=== PATIENT | male | born 2000 | race Two or more races ===

== ENCOUNTER 2024-06-16 12:47 | Emergency (ER) | payer BC ==
[2024-06-16 13:12] VITALS: TEMP 98
--- NOTE | 2024-06-16 13:37 | XR ---
EXAMINATION TYPE: XR chest 2V DATE OF EXAM: 06/16/2024 COMPARISON: No priors this location INDICATION: Recent pneumothorax last week TECHNIQUE: Frontal and lateral views of the chest are obtained. FINDINGS: The heart size is normal. The pulmonary vasculature is normal. There is a moderate-sized left pleural effusion. No current pneumothorax is evident.. IMPRESSION: 1. Moderate left pleural effusion. [facility], Workstation: [facility], 06/16/2024 1:35 PM
--- NOTE | 2024-06-16 14:15 | ED ---
General Adult HPI - General Chief complaint: Chest Pain Stated complaint: SOB Time Seen by Provider: 06/16/24 13:17 Source: patient, RN notes reviewed, old records reviewed Mode of arrival: ambulatory - History of Present Illness Initial comments: 23-year-old male with recent pneumothorax and secondary hemothorax presents for evaluation of left-sided lower chest pain. Patient had anterior chest wall chest tube placed 10 days ago patient reports a complication of hemothorax after chest tube placement and received a left lateral traditional chest tube at [facility] after transfer. He states this was subsequently removed 5 days ago he has been home since that time. He has had some discomfort but today he noted increased left lower chest discomfort. No fever. No dyspnea. - Related Data Home Medications Medication Instructions Recorded Confirmed Acetaminophen [Tylenol Extra 1,000 mg PO Q6H PRN 06/16/24 06/16/24 Strength] Sennosides-Docusate Sodium 1 tab PO BID PRN 06/16/24 06/16/24 [Senokot-S] oxyCODONE HCL [OxyIR] 5 mg PO Q6H PRN 06/16/24 06/16/24 Allergies Allergy/AdvReac Type Severity Reaction Status Date / Time eggplant AdvReac Unknown Verified 06/16/24 14:52 Review of Systems ROS Statement: Those systems with pertinent positive or pertinent negative responses have been documented in the HPI. ROS Other: All systems not noted in ROS Statement are negative. Past Medical History Additional Past Medical History / Comment(s): pneumothorax History of Any Multi-Drug Resistant Organisms: None Reported Past Surgical History: No Surgical Hx Reported Past Psychological History: No Psychological Hx Reported Smoking Status: Former smoker Past Alcohol Use History: None Reported Past Drug Use History: None Reported General Exam General appearance: alert, in no apparent distress Head exam: Present: atraumatic, normocephalic Eye exam: Present: normal appearance, PERRL ENT exam: Present: normal exam Neck exam: Present: normal inspection. Absent: tenderness, meningismus Respiratory exam: Present: chest wall tenderness, decreased breath sounds (Left lung base), other (Chest tube insertion sites are well-healed without signs of infection). Absent: respiratory distress, wheezes Cardiovascular Exam: Present: regular rate, normal rhythm GI/Abdominal exam: Present: soft. Absent: distended Extremities exam: Present: normal inspection, normal capillary refill Neurological exam: Present: alert, oriented X3, CN II-XII intact. Absent: motor sensory deficit Psychiatric exam: Present: normal affect, normal mood Course Vital Signs 06/16/24 06/16/24 06/16/24 13:05 15:24 16:28 Temperature 98 F Pulse Rate 99 98 90 Respiratory 20 22 20 Rate Blood Pressure 122/76 136/85 112/67 O2 Sat by Pulse 100 100 98 Oximetry 06/16/24 06/16/24 17:09 18:15 Temperature Pulse Rate 94 91 Respiratory 22 18 Rate Blood Pressure 112/67 115/73 O2 Sat by Pulse 97 98 Oximetry - Reevaluation(s) Reevaluation #1: 06/16/24 14:14 Attempts to obtain medical records and contact the cardiothoracic team at [facility] have been made. Reevaluation #2: 06/16/24 14:46 I discussed the case at length with Dr. Hanson, covering for thoracic surgery at [facility]. We were able to compare her x-rays from discharge to today. The left-sided effusion is significantly worse today than the time of discharge. Plan for transfer. The thoracic team requested CT imaging and chest tube prior to transfer. Procedures - Chest Tube Insertion Consent Obtained: written consent Side of Procedure: left Indication: Hemothorax Placed on monitor/pulse oximetry: Yes Site Prep: Chloroprep Local Anesthesia: Lidocaine 1%, With Epi Amount (mLs): 5 Insertion Site: 5th Intercostal Space, Midaxillary Scalpel: #11 Open into Pleural Space Using: Winsome Clamp Returns: Blood (1000 ml) Sutured in Place: Yes Type of Suture: Nylon Dressing Applied: Petroleum Gauze Attached to Suction: Yes Type of Suction: Pleuravac Repeat X-ray Results: Lung Inflated Patient Tolerated Procedure: well Medical Decision Making - Medical Decision Making Was pt. sent in by a medical professional or institution (, PA, HORSE RACE STARTER, urgent care, hospital, or fci...) When possible be specific @ -No Did you speak to anyone other than the patient for history (EMS, parent, family, police, friend...)? What history was obtained from this source @ -No Did you review nursing and triage notes (agree or disagree)? Why? @ -I reviewed and agree with nursing and triage notes Were old charts reviewed (outside hosp., previous admission, EMS record, old EKG, old radiological studies, urgent care reports/EKG's, fci records)? Report findings @ -No old charts were reviewed Differential Dyspnea: Coronary syndrome, arrhythmia, tamponade, asthma, COPD, pulmonary embolism, pneumonia, pneumothorax, pulmonary effusion, anaphylaxis, diabetic ketoacidosis, flailed chest, pulmonary contusion, diaphragmatic rupture, anemia, neuromuscular, this is not meant to be an all-inclusive list. EKG interpreted by me (3pts min.). @ -As above X-rays interpreted by me (1pt min.). @ -Chest x-ray showing a left-sided pleural effusion, no old for comparison. CT interpreted by me (1pt min.). @ -CT chest with contrast showing residual small pneumothorax and presumed hemothorax with appropriately placed chest tube. U/S interpreted by me (1pt. min.). @ -None done What testing was considered but not performed or refused? (CT, X-rays, U/S, labs)? Why? @ -None What meds were considered but not given or refused? Why? @ -None Did you discuss the management of the patient with other professionals (professionals i.e. , PA, HORSE RACE STARTER, lab, RT, psych nurse, renal social worker, development team lead, teacher, restoration officer, case finishing machine adjuster)? Give summary @Case discussed with the transfer team at [facility], accepting physician Dr. Tamez, Was smoking cessation discussed for >3mins.? @ -No Was critical care preformed (if so, how long)? @ yes, 35 min Were there social determinants of health that impacted care today? How? (Homelessness, low income, unemployed, alcoholism, drug addiction, tr ansportation, low edu. Level, literacy, decrease access to med. care, [facility], rehab)? @ -No Was there de-escalation of care discussed even if they declined (Discuss DNR or withdrawal of care, Hospice)? DNR status @ -No What co-morbidities impacted this encounter? (DM, HTN, Smoking, COPD, CAD, Cancer, CVA, ARF, Chemo, Hep., AIDS, mental health diagnosis, sleep apnea, morbid obesity)? @ -[Pneumohemothorax Was patient admitted / discharged? Hospital course, mention meds given and route, prescriptions, significant lab abnormalities, going to OR and other pertinent info. @ -23-year-old male with recent pneumothorax and secondary hemothorax presenting for reevaluation of left-sided chest pain. X-rays obtained, shows moderate effusion on the left with no definitive pneumothorax. I discussed case with Chuck Boswell who is familiar with the patient, thoracic team, Dr. Hanson, laboratory testing, CT imaging are pending. Thoracic team requests chest tube placement prior to transfer. I was able to place a left-sided 24 Spanish chest tube. Approximately 1 L of dark blood was returned. Patient tolerated the procedure well. Vitals remained stable. Patient will undergo CT imaging prior to transfer. He is being transferred as a direct admit to the thoracic service. Undiagnosed new problem with uncertain prognosis? @ -No Drug Therapy requiring intensive monitoring for toxicity (Heparin, Nitro, Insulin, Cardizem)? @ -No Were any procedures done? @ -yes, chest tube Diagnosis/symptom? @ -[Hemothorax, pneumothorax Acute, or Chronic, or Acute on Chronic? @ -Acute Uncomplicated (without systemic symptoms) or Complicated (systemic symptoms)? @ -[complicated Side effects of treatment? @ -No Exacerbation, Progression, or Severe Exacerbation? @ -No Poses a threat to life or bodily function? How? (Chest pain, [place], [place], pneumonia, PE, COPD, DKA, ARF, appy, cholecystitis, CVA, Diverticulitis, Homicidal, Suicidal, threat to staff... and all critical care pts) @Yes, pneumohemothorax - Lab Data Result diagrams: 06/16/24 14:41 06/16/24 14:41 Lab Results 06/16/24 06/16/24 06/16/24 Range/Units 14:41 14:41 14:41 WBC 13.1 H (3.8-10.6) k/uL RBC 3.40 L (4.30-5.90) m/uL Hgb 10.4 L (13.0-17.5) gm/dL Hct 32.5 L (39.0-53.0) % MCV 95.4 (80.0-100.0) fL MCH 30.4 (25.0-35.0) pg MCHC 31.9 (31.0-37.0) g/dL RDW 15.3 (11.5-15.5) % Plt Count 566 H (150-450) k/uL MPV 6.3 Neutrophils % 79 % Lymphocytes % 9 % Monocytes % 8 % Eosinophils % 2 % Basophils % 0 % Neutrophils # 10.3 H (1.3-7.7) k/uL Lymphocytes # 1.2 (1.0-4.8) k/uL Monocytes # 1.0 (0-1.0) k/uL Eosinophils # 0.2 (0-0.7) k/uL Basophils # 0.0 (0-0.2) k/uL Hypochromasia Slight PT 10.3 (10.0-12.5) sec INR 0.9 (<1.2) APTT 24.9 (22.0-30.0) sec Sodium 136 L (137-145) mmol/L Potassium 4.3 (3.5-5.1) mmol/L Chloride 106 (98-107) mmol/L Carbon Dioxide 25 (22-30) mmol/L Anion Gap 5 mmol/L BUN 13 (9-20) mg/dL Creatinine 0.64 L (0.66-1.25) mg/dL Est GFR (CKD-EPI)AfAm >90 (>60 ml/min/1.73 sqM) Est GFR (CKD-EPI)NonAf >90 (>60 ml/min/1.73 sqM) Glucose 94 (74-99) mg/dL Calcium 9.3 (8.4-10.2) mg/dL Total Bilirubin 1.6 H (0.2-1.3) mg/dL AST 55 (17-59) U/L ALT 91 H (4-49) U/L Alkaline Phosphatase 42 (38-126) U/L Total Protein 6.8 (6.3-8.2) g/dL Albumin 4.1 (3.5-5.0) g/dL Critical Care Time Critical Care Time: Yes Total Critical Care Time: 35 Disposition Clinical Impression: Hemothorax on left Disposition: OTHER INSTITUTION NOT DEFINED Condition: Stable Is patient prescribed a controlled substance at d/c from ED?: No Referrals: None,Stated [Primary Care Provider] - 1-2 days Time of Disposition: 14:50 - Out of Hospital Transfer - Req. Specs Out of Hospital Transfer - Requested Specifics: Other Emergency Center (Transfer to [facility])
[2024-06-16] MEDS ORDERED: RX INFO: IV CONTRAST WAS GIVEN 1 EACH MISC MISCELLANE PRN (14:39)
[2024-06-16 14:47] LABS: Basophils % (A) 0 %; Eosinophils # (A) 0.2 k/uL (0-0.7); Eosinophils % (A) 2 %; HCT 32.5 % (39.0-53.0); HGB 10.4 gm/dL (13.0-17.5); Hypochromasia Slight; Lymphocytes # (A) 1.2 k/uL (1.0-4.8); Lymphocytes % (A) 9 %; MCH 30.4 pg (25.0-35.0); MCHC 31.9 g/dL (31.0-37.0); MCV 95.4 fL (80.0-100.0); Mean Platelet Volume 6.3; Monocytes % (A) 8 %; Neutrophils # (A) 10.3 k/uL (1.3-7.7); Neutrophils % (A) 79 %; Platelet Count 566 k/uL (150-450); RDW 15.3 % (11.5-15.5); WBC 13.1 k/uL (3.8-10.6)
[2024-06-16 14:58] LABS: ALT 91 U/L (4-49); African American GFR (CKD) >90 (>60 ml/min/1.73 sqM); Albumin 4.1 g/dL (3.5-5.0); Anion Gap 5 mmol/L; Blood Urea Nitrogen 13 mg/dL (9-20); Calcium 9.3 mg/dL (8.4-10.2); Carbon Dioxide 25 mmol/L (22-30); Chloride 106 mmol/L (98-107); Glucose 94 mg/dL (74-99); Non-African American GFR(CKD) >90 (>60 ml/min/1.73 sqM); Sodium 136 mmol/L (137-145); Total Bilirubin 1.6 mg/dL (0.2-1.3); Total Protein 6.8 g/dL (6.3-8.2)
[2024-06-16 15:07] LABS: INR 0.9 (<1.2); Partial Thromboplastin Time 24.9 sec (22.0-30.0); Prothrombin Time 10.3 sec (10.0-12.5)
[2024-06-16] MEDS: KETAMINE 10 MG/ML 20 ML VIAL IV STA (15:13)
[2024-06-16 15:22] LABS: AST 55 U/L (17-59); Alkaline Phosphatase 42 U/L (38-126); Potassium 4.3 mmol/L (3.5-5.1)
[2024-06-16] MEDS: LIDOCAINE 2%-EPI 1:100,000 20 ML VIAL SQ STA (15:26)
--- NOTE | 2024-06-16 16:40 | CT ---
EXAMINATION TYPE: CT chest w con CT DLP: 357.5 mGycm, Automated exposure control for dose reduction was used. DATE OF EXAM: 06/16/2024 4:14 PM COMPARISON: Chest radiograph from same day . CLINICAL INDICATION: Male, 23 years old with history of hemothorax; PHH, psot chest tube insertion TECHNIQUE: Multiple axial images were obtained through the chest. Sagittal and coronal reformats were created for review. MIP was performed on a separate workstation. Contrast used:100 ml mL of Isovue 370 with IV Contrast (None if empty) Oral contrast used: (None if empty) FINDINGS: LUNGS/ PLEURA: Small left pneumothorax with thoracotomy tube in place. Small left pleural effusion. N o right focal consolidation, pneumothorax or pleural fusion. Fluid attenuation is 22 Hounsfield e beatriz e areas of higher density measuring up to 54 Hounsfield units. AIRWAY: Patent and unremarkable. HEART: Size within normal limits. MEDIASTINUM: No gross evidence of adenopathy. VASCULATURE: No aortic aneurysm. MUSCULOSKELETAL: No acute osseous abnormalities, mild scoliosis changes of the spine SOFT TISSUES/LYMPH NODES: The skin around the left chest tube insertion versus mild edema with few fo ci of subcutaneous gas. Trace gas may also be in the lower neck possibly within the venous structures from injection. LOWER NECK: No significant findings. UPPER ABDOMEN: No significant findings. IMPRESSION: 1. Small to moderate left pneumothorax with small left complex mixed hyperdensity low density pleura l effusion suggestive of hemothorax. 2. left thoracotomy tube in appropriate position. No evidence for complication. [facility], , 06/16/2024 4:38 PM
[2024-06-16] MEDS: HYDROmorphone 1 MG/ML 1 ML SYRINGE IVP STA (18:14)
[2024-06-16 18:17] VITALS: BP 115/73; PULSE 91; RESP 18
== END 2024-06-16 18:32 | disposition other institution (70) ==
LOC: EC 12:47
CPT/HCPCS: 32551; 36415; 71046; 71260; 80053; 85025; 85610; 85730; 93005; 96374; 96375; 99291